=== PATIENT | male | born 1990 | race Caucasian/White ===

== ENCOUNTER 2018-01-10 21:47 | Emergency (ER) | payer OTHER ==
[2018-01-10 22:11] LABS: ADD MAN DIFF? NO
[2018-01-10 22:19] LABS: WHITE BLOOD COUNT 7.3 10^3/ul (4.8-10.8)
[2018-01-10 22:19] LABS: BASOPHILS % 0.4 % (0.0-2.0); EOSINOPHILS # 0.1 10^3/ul (0.0-0.5); EOSINOPHILS % 0.7 % (0.0-7.0); HEMATOCRIT 42.2 % (42.0-52.0); LYMPHOCYTES # 2.2 10^3/ul (0.8-2.9); LYMPHOCYTES % 29.9 % (15.0-51.0); MEAN CORPUSCULAR HEMOGLOBIN 28.1 pg (29.0-33.0); MEAN CORPUSCULAR HGB CONC 33.2 g/dl (32.0-37.0); MEAN CORPUSCULAR VOLUME 84.7 fl (82.0-101.0); MEAN PLATELET VOLUME 9.6 fl (7.4-10.4); MONOCYTE # 0.5 10^3/ul (0.3-0.9); MONOCYTES % 6.8 % (0.0-11.0); NEUTROPHIL # 4.5 10^3/ul (1.6-7.5); NEUTROPHILS % 61.9 % (39.0-77.0); PLATELET COUNT 249 10^3/UL (140-415); RED BLOOD COUNT 4.98 10^6/ul (4.70-6.10); RED CELL DISTRIBUTION WIDTH 13.2 % (11.5-14.5)
[2018-01-10] MEDS: ASPIRIN 325 MG TAB PO (22:22)
[2018-01-10 22:38] LABS: ANION GAP 14 (8-16); BLOOD UREA NITROGEN 20 mg/dl (7-20); CALCIUM 9.3 mg/dl (8.4-10.2); CARBON DIOXIDE 27 mmol/L (21-31); CHLORIDE 105 mmol/L (97-110); CHOL/HDL RATIO 7.4 RATIO; CHOLESTEROL 201 mg/dl (100-200); CREATINE KINASE 70 IU/L (23-200); CREATININE 1.11 mg/dl (0.61-1.24); GLUCOSE 175 mg/dl (70-220); HDL CHOLESTEROL 27 mg/dl (30-63); LDL CHOLESTEROL,CALCULATED 75 mg/dl; POTASSIUM 3.9 mmol/L (3.5-5.1); SODIUM 142 mmol/L (135-144); TRIGLYCERIDES 494 mg/dl (0-149)
[2018-01-10 22:45] LABS: INR 0.96; PARTIAL THROMBOPLASTIN TIME 26.9 Sec (25.0-35.0); PROTIME 12.9 Sec (11.9-14.9)
[2018-01-10 22:49] LABS: CK INDEX 0.3; CK-MB < 0.22 ng/ml (0.0-2.4); TROPONIN-I < 0.012 ng/ml (0.000-0.120)
[2018-01-10 22:56] LABS: HEMOGLOBIN A1C 6.8 % (0-5.9)
[2018-01-10] MEDS ORDERED: ONDANSETRON 4 MG INJ IV (23:30)
[2018-01-10] MEDS ORDERED: ACETAMINOPHEN 325 MG TAB PO (23:30)
== END 2018-01-11 00:07 | disposition left against medical advice (07) ==
LOC: E/R 01-11 00:07
DX: I63.9 Cerebral infarction, unspecified (principal); R40.2142 Coma scale, eyes open, spontaneous, at arrival to emergency department; R40.2252 Coma scale, best verbal response, oriented, at arrival to emergency department; R40.2362 Coma scale, best motor response, obeys commands, at arrival to emergency department
CPT/HCPCS: 36415; 70450; 71045; 80048; 80061; 82550; 82553; 82962; 83036; 84484; 85025; 85610; 85730; 93005; 99291-25

== ENCOUNTER 2018-01-13 13:50 | Inpatient (IN) | payer OTHER ==
[2018-01-13 16:25] LABS: ADD MAN DIFF? NO
[2018-01-13] MEDS: SOD CHLORIDE 0.9% 1,000 ML IV ×2 (16:26→22:03)
[2018-01-13 16:27] LABS: WHITE BLOOD COUNT 6.8 10^3/ul (4.8-10.8)
[2018-01-13 16:27] LABS: BASOPHILS % 0.4 % (0.0-2.0); EOSINOPHILS # 0.1 10^3/ul (0.0-0.5); EOSINOPHILS % 0.9 % (0.0-7.0); HEMATOCRIT 45.3 % (42.0-52.0); HEMOGLOBIN 15.1 g/dl (14.0-18.0); LYMPHOCYTES # 2.2 10^3/ul (0.8-2.9); MEAN CORPUSCULAR HEMOGLOBIN 28.4 pg (29.0-33.0); MEAN CORPUSCULAR HGB CONC 33.3 g/dl (32.0-37.0); MEAN CORPUSCULAR VOLUME 85.3 fl (82.0-101.0); MEAN PLATELET VOLUME 9.6 fl (7.4-10.4); MONOCYTE # 0.4 10^3/ul (0.3-0.9); NEUTROPHIL # 4.1 10^3/ul (1.6-7.5); NEUTROPHILS % 60.3 % (39.0-77.0); PLATELET COUNT 267 10^3/UL (140-415); RED BLOOD COUNT 5.31 10^6/ul (4.70-6.10); RED CELL DISTRIBUTION WIDTH 13.1 % (11.5-14.5)
[2018-01-13 16:46] LABS: INR 0.91; PROTIME 12.3 Sec (11.9-14.9)
[2018-01-13 16:47] LABS: PARTIAL THROMBOPLASTIN TIME 24.8 Sec (25.0-35.0)
[2018-01-13 16:59] LABS: ALANINE AMINOTRANSFERASE 57 IU/L (13-69); ALBUMIN 4.4 g/dl (3.3-4.9); ALBUMIN/GLOBULIN RATIO 1.12; ALKALINE PHOSPHATASE 68 IU/L (42-121); ANION GAP 18 (8-16); ASPARTATE AMINO TRANSFERASE 29 IU/L (15-46); BILIRUBIN,INDIRECT 0.4 mg/dl (0-1.1); BILIRUBIN,TOTAL 0.4 mg/dl (0.2-1.3); BLOOD UREA NITROGEN 13 mg/dl (7-20); CALCIUM 10.8 mg/dl (8.4-10.2); CARBON DIOXIDE 26 mmol/L (21-31); CHLORIDE 103 mmol/L (97-110); CHOL/HDL RATIO 7.1 RATIO; CHOLESTEROL 208 mg/dl (100-200); CREATININE 0.87 mg/dl (0.61-1.24); GLUCOSE 175 mg/dl (70-220); HDL CHOLESTEROL 29 mg/dl (30-63); LDL CHOLESTEROL,CALCULATED 99 mg/dl; POTASSIUM 4.1 mmol/L (3.5-5.1); SODIUM 143 mmol/L (135-144); TOTAL PROTEIN 8.3 g/dl (6.1-8.1); TRIGLYCERIDES 402 mg/dl (0-149)
[2018-01-13] MEDS: morphine 4 MG/ML VIAL IV (20:57)
[2018-01-13] MEDS: ONDANSETRON 4 MG INJ IV (20:58)
[2018-01-13] MEDS ORDERED: ONDANSETRON 4 MG INJ IV ×2 (21:00)
[2018-01-13] MEDS ORDERED: NACL 0.9% 3 ML SYG IV (21:00)
[2018-01-13] MEDS ORDERED: ACETAMINOPHEN 325 MG TAB PO (21:00)
[2018-01-13] MEDS: ASPIRIN 325 MG TAB PO (21:04)
[2018-01-13] MEDS: ACETAMINOPHEN 325 MG TAB PO (21:04)
[2018-01-14 05:49] LABS: ADD MAN DIFF? NO
[2018-01-14 06:01] LABS: WHITE BLOOD COUNT 7.2 10^3/ul (4.8-10.8)
[2018-01-14 06:01] LABS: BASOPHIL # 0.1 10^3/ul (0.0-0.1); BASOPHILS % 0.7 % (0.0-2.0); EOSINOPHILS # 0.1 10^3/ul (0.0-0.5); EOSINOPHILS % 1.3 % (0.0-7.0); HEMATOCRIT 41.3 % (42.0-52.0); HEMOGLOBIN 13.5 g/dl (14.0-18.0); LYMPHOCYTES % 41.5 % (15.0-51.0); MEAN CORPUSCULAR HEMOGLOBIN 27.8 pg (29.0-33.0); MEAN CORPUSCULAR HGB CONC 32.7 g/dl (32.0-37.0); MEAN PLATELET VOLUME 9.7 fl (7.4-10.4); MONOCYTE # 0.5 10^3/ul (0.3-0.9); MONOCYTES % 7.1 % (0.0-11.0); NEUTROPHIL # 3.5 10^3/ul (1.6-7.5); NEUTROPHILS % 49.3 % (39.0-77.0); PLATELET COUNT 243 10^3/UL (140-415); RED BLOOD COUNT 4.86 10^6/ul (4.70-6.10); RED CELL DISTRIBUTION WIDTH 13.3 % (11.5-14.5)
[2018-01-14 06:13] LABS: ALANINE AMINOTRANSFERASE 49 IU/L (13-69); ALBUMIN 3.9 g/dl (3.3-4.9); ALBUMIN/GLOBULIN RATIO 1.34; ALKALINE PHOSPHATASE 55 IU/L (42-121); ANION GAP 12 (8-16); ASPARTATE AMINO TRANSFERASE 21 IU/L (15-46); BILIRUBIN,INDIRECT 0.5 mg/dl (0-1.1); BILIRUBIN,TOTAL 0.5 mg/dl (0.2-1.3); BLOOD UREA NITROGEN 18 mg/dl (7-20); CALCIUM 9.1 mg/dl (8.4-10.2); CARBON DIOXIDE 28 mmol/L (21-31); CHLORIDE 105 mmol/L (97-110); CHOL/HDL RATIO 8.1 RATIO; CHOLESTEROL 187 mg/dl (100-200); GLUCOSE 174 mg/dl (70-220); HDL CHOLESTEROL 23 mg/dl (30-63); LDL CHOLESTEROL,CALCULATED 87 mg/dl; MAGNESIUM 1.8 mg/dl (1.7-2.5); SODIUM 141 mmol/L (135-144); TOTAL PROTEIN 6.8 g/dl (6.1-8.1); TRIGLYCERIDES 385 mg/dl (0-149)
[2018-01-14 06:59] LABS: HEMOGLOBIN A1C 6.8 % (0-5.9)
[2018-01-14] MEDS: ASPIRIN (EC) 81 MG TAB PO (08:57)
[2018-01-14] MEDS: ENOXAPARIN 40 MG/0.4 ML SYG SC (09:00)
[2018-01-14] MEDS ORDERED: DEXTROSE 50% 50 ML SYRINGE IV ×2 (12:30)
[2018-01-14] MEDS ORDERED: GLUCAGON 1 MG INJ IM (12:30)
[2018-01-14] MEDS ORDERED: GLUCOSE GEL 15 GRAM TUBE BUCCAL (12:30)
[2018-01-14] MEDS ORDERED: hydrALAzine 20 MG INJ IV (12:30)
[2018-01-14] MEDS ORDERED: GLUCOSE GEL 15 GRAM TUBE PO ×2 (12:30)
[2018-01-14] MEDS: SOD CHLORIDE 0.9% 1,000 ML IV (12:57)
[2018-01-14] MEDS: INSULIN ASPART [NOVOLOG] 3 ML PEN SC (17:05)
[2018-01-14] MEDS ORDERED: ATORVASTATIN 20 MG TAB PO (21:00)
[2018-01-14] MEDS ORDERED: ATORVASTATIN 40 MG TAB PO (21:00)
[2018-01-15] MEDS ORDERED: FENOFIBRATE 145 MG TAB PO (09:00)
[2018-01-15] MEDS ORDERED: ASPIRIN (EC) 81 MG TAB PO (09:00)
== END 2018-01-14 17:55 | disposition left against medical advice (07) | DRG 92 ==
LOC: FTE 13:50 → 6WM 20:32
DX: R29.810 Facial weakness (principal); Z68.43 Body mass index [BMI] 50.0-59.9, adult; E66.01 Morbid (severe) obesity due to excess calories; E83.52 Hypercalcemia; R53.1 Weakness; E78.5 Hyperlipidemia, unspecified; Z71.3 Dietary counseling and surveillance; Z79.82 Long term (current) use of aspirin
CPT/HCPCS: 36415; 70450; 70551; 71045; 80053; 80061; 82962; 83036; 83735; 84443; 85025; 85610; 85730; 92610; 93005; 93306; 93880; 97161; 99285-25